=== PATIENT | male | born 1955 | race Caucasian/White ===

== ENCOUNTER 2019-10-06 05:54 | Outpatient (CLI) | payer MEDICARE, OTHER ==
[~2019-10-06] VITALS: Ht 177 cm; Wt 70.4 kg
[2019-10-14] MEDS ORDERED: HYDR-3812 PO (12:19)
[2019-10-14] MEDS ORDERED: LIDO15SO2 MM (12:19)
== END 2019-10-06 16:11 | disposition home or self-care (01) ==
LOC: PREOP 05:54
PROVIDERS: ATTEND Otolaryngology Otolaryngology/Facial Plastic Surgery
DX: Z01.818 Encounter for other preprocedural examination (principal)

== ENCOUNTER 2021-02-07 09:50 | Outpatient (CLI) | payer MEDICARE, OTHER ==
[~2021-02-07] VITALS: Ht 177.8 cm; Wt 70.5 kg
[~2021-02-07 09:50] MED LIST: ACHD5005 PO; LIDO20SO23 MM
== END 2021-02-07 13:40 | disposition home or self-care (01) ==
LOC: PREOP 09:50
PROVIDERS: ATTEND Otolaryngology Otolaryngology/Facial Plastic Surgery
DX: Z01.818 Encounter for other preprocedural examination (principal)

== ENCOUNTER 2021-02-12 05:50 | Day surgery (SDC) | payer MEDICARE, OTHER ==
[2021-02-12] VITALS (9 sets, daily range): BP systolic 125–145; BP diastolic 87–96
[~2021-02-12] VITALS: Ht 177.8 cm; Wt 70.5 kg
[2021-02-12] MEDS ORDERED: LACTATED RINGERS 1,000 ML IV PRN (06:15)
[2021-02-12 06:38] LABS: BASOPHILS # (AUTO) 0.1 10^3/uL (0.0-0.1); BASOPHILS % (AUTO) 1 % (0-10); EOSINOPHILS # (AUTO) 0.2 10^3/uL (0.0-0.3); EOSINOPHILS % (AUTO) 2 % (0-10); HEMATOCRIT 46 % (40-54); HEMOGLOBIN 15.3 g/dL (13.3-17.7); LYMPHOCYTES # (AUTO) 2.2 10^3/uL (1.0-4.0); LYMPHOCYTES % (AUTO) 21 % (12-44); MEAN CORPUSCULAR HEMOGLOBIN 33 pg (25-34); MEAN CORPUSCULAR HGB CONC 33 g/dL (32-36); MEAN CORPUSCULAR VOLUME 100 fL (80-99); MEAN PLATELET VOLUME 10.5 fL (9.0-12.2); MONOCYTES # (AUTO) 1.2 10^3/uL (0.0-1.0); MONOCYTES % (AUTO) 11 % (0-12); NEUTROPHILS # (AUTO) 6.9 10^3/uL (1.8-7.8); NEUTROPHILS % (AUTO) 65 % (42-75); PLATELET COUNT 233 10^3/uL (130-400); WHITE BLOOD COUNT 10.6 10^3/uL (4.3-11.0)
[2021-02-12] MEDS ORDERED: ONDANSETRON 4 MG/2 ML (SDV) Z0FRAN ONE (06:45)
[2021-02-12] MEDS ORDERED: LIDOCAINE PF 2% 5 ML (XYLOCAINE) VIAL ONE (06:45)
[2021-02-12] MEDS ORDERED: proPOfol 200 MG/20 ML (DIPRIVAN) VIAL IV ONE (06:45)
[2021-02-12] MEDS ORDERED: ROCURONIUM 10 MG/ML 5 ML SYRINGE IV ONE (06:45)
[2021-02-12] MEDS ORDERED: fentaNYL INJ 100 MCG/2 ML AMP ONE (06:46)
[2021-02-12] MEDS ORDERED: SEVOFLURANE (ULTANE) 15 ML INHAL SOLN ONE ×3 (06:46→08:09)
[2021-02-12] MEDS ORDERED: MIDAZOLAM 2 MG/2 ML (VERSED) VIAL ONE (06:46)
[2021-02-12 06:59] LABS: BUN/CREATININE RATIO 15; CALCIUM 8.9 MG/DL (8.5-10.1); CARBON DIOXIDE 21 MMOL/L (21-32); CHLORIDE 104 MMOL/L (98-107); CREATININE SERUM 0.74 MG/DL (0.60-1.30); GFR ESTIMATED > 60; GLUCOSE 100 MG/DL (70-105); POTASSIUM 4.3 MMOL/L (3.6-5.0); SODIUM 136 MMOL/L (135-145)
[2021-02-12] MEDS ORDERED: LIDOCAINE/EPI 1%-1:100,000 (XYLOCAINE) 20ML ONE (07:04)
--- NOTE | 2021-02-12 07:07 | Progress Note-Pre Operative ---
Pre-Operative Progress Note H&P Reviewed The H&P was reviewed, patient examined and no changes noted. Date Seen by Provider: Feb 12, 2021 Time Seen by Provider: 06:30 Date H&P Reviewed: Feb 12, 2021 Time H&P Reviewed: 06:30 Pre-Operative Diagnosis: Right Phasryngeal Wall Mass TARA VALDIVIA MD Feb 12, 2021 07:07
--- NOTE | 2021-02-12 07:39 | Progress Note-Post Operative ---
Post-Operative Progess Note Surgeon (s)/Laser Technician (s) Surgeon TARA VALDIVIA MD Laser Technician n/a Pre-Operative Diagnosis Right Phasryngeal Wall Mass Post-Operative Diagnosis same Post-Op Procedure Note Date of Procedure: Feb 12, 2021 Name of Procedure Performed: Direct Laryngoscopy with Biopsy of Right Pharyngeal Mass Description & Findings Description and Findings: n/a Anesthesia Type GET Estimated Blood Loss minimal Packing none. Specimen(s) collected/removed Right Pharyngeal Mass to pathology TARA VALDIVIA MD Feb 12, 2021 07:39
[2021-02-12] MEDS ORDERED: PROMETHAZINE INJ 25 MG/ML (PHENERGAN) AMP IV PRN (07:45)
[2021-02-12] MEDS ORDERED: HYDROcodone/APAP 5 MG/325 MG (LORTAB) TAB PO PRN (07:45)
[2021-02-12] MEDS ORDERED: ACETAMINOPHEN 325 MG TABLET PO PRN (07:45)
--- NOTE | 2021-02-12 08:27 | Anesthesia-General Post-Op ---
General Patient Condition Mental Status/LOC: Same as Preop Cardiovascular: Satisfactory Nausea/Vomiting: Absent Respiratory: Satisfactory Pain: Controlled Complications: Absent Post Op Complications Complications None Follow Up Care/Instructions Patient Instructions None needed. Anesthesia/Patient Condition Patient Condition Patient is doing well, no complaints, stable vital signs, no apparent adverse anesthesia problems. No complications reported per nursing. HARDEEP ACIN CRNA Feb 12, 2021 08:27
[2021-02-12] MEDS ORDERED: morphine INJ 10 MG/ML 1ML (SYR OR VIAL) IVP ONE (08:30)
[2021-02-12] MEDS ORDERED: ONDANSETRON 4 MG/2 ML (SDV) Z0FRAN IVP PRN (08:30)
[2021-02-12] MEDS ORDERED: HYDROmorphone 2 MG/ML VIAL (DILAUDID) IV ONE (08:30)
[2021-02-12] MEDS ORDERED: ACHD5005 PO (09:37)
[2021-02-12] MEDS ORDERED: HYDROcodone/APAP 5 MG/325 MG (LORTAB) TAB ONE (09:39)
== END 2021-02-12 10:05 | disposition home or self-care (01) ==
LOC: SDC 05:50
PROVIDERS: ATTEND Otolaryngology Otolaryngology/Facial Plastic Surgery
DX: C14.0 Malignant neoplasm of pharynx, unspecified (principal); K13.21 Leukoplakia of oral mucosa, including tongue; F17.210 Nicotine dependence, cigarettes, uncomplicated
CPT/HCPCS: 36415; 80048; 85025; 87081; 88305; 88331; 88342; 93005